=== PATIENT | male | born 1995 | race Caucasian/White ===

== ENCOUNTER 2021-05-23 16:18 | Emergency (ER) | payer OTHER ==
[2021-05-23] MEDS ORDERED: AMOXICILLIN500 MG PO (16:52)
[2021-05-23] MEDS ORDERED: IBUPROFEN600 MG PO (16:52)
== END 2021-05-23 17:08 | disposition home or self-care (01) ==
LOC: ER1 16:18
DX: R68.84 Jaw pain (principal); K08.89 Other specified disorders of teeth and supporting structures; F17.200 Nicotine dependence, unspecified, uncomplicated
CPT/HCPCS: 99283